=== PATIENT | male | born 2000 | race Caucasian/White ===

== ENCOUNTER → 2021-04-05 | Outpatient (CLI) | payer BC ==
[2021-04-05 18:37] LABS: RED BLOOD COUNT 5.12 M/UL (4.20-5.50); WHITE BLOOD COUNT 8.4 K/UL (4.5-11.0)
[2021-04-05 18:57] LABS: BUN/CREATININE RATIO 11 (0-10)
[2021-04-07 07:08] LABS: THYROXINE (T4) 6.9 ug/dL (4.5-12.0)
[2021-04-08 14:11] LABS: EBV AB VCA, IGG >600.0 U/mL (0.0-17.9); EBV AB VCA, IGM <36.0 U/mL (0.0-35.9); EBV NUCLEAR ANTIGEN AB, IGG >600.0 U/mL (0.0-17.9)
== END ==
LOC: LAB 17:36
PROVIDERS: Pediatrics
DX: R53.83 Other fatigue (principal)
CPT/HCPCS: 36415; 80053; 80061; 84436; 84443; 85025